=== PATIENT | female | born 1965 | race Caucasian/White ===

== ENCOUNTER 2016-12-26 17:12 | Emergency (ER) | payer MEDICARE, OTHER ==
[~2016-12-26] VITALS: Ht 154.9 cm; Wt 42.6 kg
[~2016-12-26 17:12] MED LIST: ACET-704 PO; CLIN300C8 PO
[2016-12-26 17:25] VITALS: BP 136/85
[2016-12-26] MEDS ORDERED: CLINDAMYCIN HCL 150 MG CAPSULE PO ONE ×2 (17:30→17:45)
--- NOTE | 2016-12-26 17:42 | ED.ADGEN ---
Past History Past Medical History: Anxiety, Depression, Other Past Surgical History: Alcohol Use: None Drug Use: None Adult General Chief Complaint Chief Complaint rash, swelling ? insect bite under L arm/armpit HPI HPI Patient is a 51 year old F who presents with redness, swelling in L arm pit for past 4 days Pt concerned about infection and has noticed drainage from area, more 2 days ago after pt states she "poked it with a needle" now pain that radiated from L arm pit to chest. Pt denies weakness numbness or tingling Pt states 2 days ago had red streak down arm but gone now after pus drained out Review of Systems Review of Systems Constitutional: fever or chills Eyes: Denies change in visual acuity, redness, or eye pain HENT: Denies nasal congestion or sore throat Respiratory: Denies shortness of breath Has had some chest pain that radiates from L arm pit Cardiovascular: No additional information not addressed in HPI GI: Denies abdominal pain, nausea, vomiting, bloody stools or diarrhea : Denies dysuria or hematuria Integument: redness swelling, drainage L armpit Neurologic: Denies headache, focal weakness or sensory changes Current Medications Current Medications Current Medications Medications (Trade) Dose Ordered Sig/Kendy Start Time Stop Time Status Last Admin Dose Admin Clindamycin HCl (Cleocin) 150 mg 1X ONCE 12/26/16 17:30 12/26/16 17:33 DC Ibuprofen (Motrin) 600 mg 1X ONCE 12/26/16 18:15 12/26/16 18:16 DC Allergies Allergies Allergies Coded Allergies Type Severity Reaction Last Updated Verified ketorolac Allergy Intermediate VOMITING 02/10/15 No tramadol Allergy Intermediate VOMITING 02/10/15 No I S O L A T I O N *CONTACT* Allergy Unknown 02/10/15 No pt states she can take Motrin in past without problems even though she can take toradol Physical Exam Physical Exam Constitutional: Well developed, well nourished, no acute distress, non-toxic appearance. HENT: Normocephalic, atraumatic,, oropharynx moist, no oral exudates, nose normal. Neck: Normal range of motion, no tenderness, supple, no stridor. Cardiovascular:Heart rate regular rhythm, no murmur Lungs & Thorax: Bilateral breath sounds clear to auscultation, some tenderness L upper chest, no crepitus Abdomen: Bowel sounds normal, soft, no tenderness, no masses, no pulsatile masses. Skin: L arm pit is a 4cm/5cm red area with 3 open draining areas, no abscess now and clear serosanginous material minimally from open areas mild surrounding cellulitis, no crepitus, no red streaking up or down L arm Back: No tenderness, no CVA tenderness. Extremities: , no cyanosis, no clubbing, ROM intact, no edema. Neurologic: Alert and oriented X 3, normal motor function, normal sensory function, no focal deficits noted. Psychologic: Affect normal, judgement normal, mood normal. Current Patient Data Vital Signs Vital Signs Date Time Temp Pulse Resp B/P (MAP) Pulse Ox O2 Delivery O2 Flow Rate FiO2 12/26/16 17:25 97.9 88 16 97 Room Air all vitals reviewed including nursing notes and stable EKG EKG [] Radiology/Procedures Radiology/Procedures [address] [address] IMAGING REPORT Signed PATIENT: YOUSUF PIZANO ACCOUNT: [id number] : 1965 LOCATION: ER AGE: 51 SEX: F EXAM STATUS: DEP ER ORD. PHYSICIAN: DORINA CHAPARRO MD REASON: chest pain, cough PROCEDURE: CHEST PA & LATERAL Indication: Cough and spider bite in the left axilla. Time of exam 1739 hours. Correlation is made with prior chest from 09/30/2016. FINDINGS: The heart size is normal. The lungs are clear. No pleural effusion or pneumothorax is identified. The pulmonary vascularity is normal. IMPRESSION: No acute abnormality detected. DICTATED AND SIGNED BY: CITLALLI GARRIDO MD DATE: 12/27/16 0720 CC: DORINA CHAPARRO MD; EMMANUEL SEPULVEDA ~ [] Course & Med Decision Making Course & Med Decision Making Pertinent Labs and Imaging studies reviewed. (See chart for details) pt hx of MRSA approx 8 months ago not toxic pt worried about pain from arm pit going into chest and cough so obtained CXR that was unremarkable, no gas or significant soft tissue swelling Likely abscess that is already open and draining no need to I and D in ER but will put on Clindamycin and advised close follow up with PCP Final Impression Final Impression CELLULITIS L ARM PIT WITH DRAINAGE[] Problems: Dragon Disclaimer Dragon Disclaimer This electronic medical record was generated, in whole or in part, using a voice recognition dictation system. DORINA CHAPARRO MD December 26, 2016 17:42
[2016-12-26] MEDS ORDERED: IBUPROFEN 600 MG TABLET. PO ONE (18:15)
--- NOTE | 2016-12-27 07:23 | RAD ---
Indication: Cough and spider bite in the left axilla. Time of exam 1739 hours. Correlation is made with prior chest from 09/30/2016. FINDINGS: The heart size is normal. The lungs are clear. No pleural effusion or pneumothorax is identified. The pulmonary vascularity is normal. IMPRESSION: No acute abnormality detected.
== END 2016-12-26 18:17 | disposition home or self-care (01) ==
LOC: ER 17:12
DX: L03.114 Cellulitis of left upper limb (principal); Z86.14 Personal history of Methicillin resistant Staphylococcus aureus infection; Z88.8 Allergy status to other drugs, medicaments and biological substances; Z88.6 Allergy status to analgesic agent; Z91.041 Radiographic dye allergy status
CPT/HCPCS: 71020; 99284

== ENCOUNTER 2017-01-30 15:12 | Emergency (ER) | payer MEDICARE, OTHER ==
[~2017-01-30] VITALS: Ht 154.9 cm; Wt 42.6 kg
[2017-01-30 16:10] VITALS: BP 136/66
[2017-01-30] MEDS ORDERED: HYDROcodone/APAP 5/325MG 1 TAB TABLET PO ONE (16:15)
--- NOTE | 2017-01-30 16:18 | ED.ADGEN ---
Past History Past Medical History: Anxiety, Depression, Liver Disease Past Surgical History: Alcohol Use: None Drug Use: None Adult General Chief Complaint Chief Complaint Back pain HPI HPI Patient is a 51 year-old female with history of chronic back pain and sciatica of left leg. Patient reports increased pain to left low back radiating below left knee posteriorly. Patient denies specific injury or complaint, but noted pain this morning while cooking breakfast. Patient denies motor weakness or loss of sensation. No urinary incontinence or saddle anesthesia. No other acute symptoms or complaints. Patient PCP is Tarun Pang. Also concerned about bump of small bump over Right buttocks. Review of Systems Review of Systems ROS as per HPI. Current Medications Current Medications Current Medications Medications (Trade) Dose Ordered Sig/Kendy Start Time Stop Time Status Last Admin Dose Admin Acetaminophen/ Hydrocodone Bitart (Lortab 5/325) 1 tab 1X ONCE 01/30/17 16:15 01/30/17 16:16 Allergies Allergies Allergies Coded Allergies Type Severity Reaction Last Updated Verified ketorolac Allergy Intermediate VOMITING 02/10/15 No tramadol Allergy Intermediate VOMITING 02/10/15 No I S O L A T I O N *CONTACT* Allergy Unknown 02/10/15 No Physical Exam Physical Exam Constitutional: Anxious, tearful. HENT: Normocephalic, atraumatic, bilateral external ears normal, oropharynx moist. Eyes: PERRL, EOMI. Neck: Normal range of motion, no tenderness. Cardiovascular:Heart rate regular rhythm, no murmur. Lungs & Thorax: Bilateral breath sounds clear to auscultation. Abdomen: Bowel sounds normal, soft, no tenderness. Skin: Nodule right buttock. Back: Lower lumbar paravertebral pain, no midline tenderness swelling or bruising. SLR are positive in left. Neurologic: Alert and oriented X 3, normal motor function, normal sensory function, no focal deficits noted. Current Patient Data Vital Signs Vital Signs Date Time Temp Pulse Resp B/P (MAP) Pulse Ox O2 Delivery O2 Flow Rate FiO2 01/30/17 15:20 97.3 78 18 98 Room Air EKG EKG [] Radiology/Procedures Radiology/Procedures [] Course & Med Decision Making Course & Med Decision Making Pertinent Labs and Imaging studies reviewed. (See chart for details) Left sided sciatica, no motor weakness or loss of sensation. Patient address. Instructed to follow-up with PCP for further management. Final Impression Final Impression [] Problems: Dragjerry Disclaimer Dragon Disclaimer This electronic medical record was generated, in whole or in part, using a voice recognition dictation system. GEORGE CHAPARRO DO Jan 30, 2017 16:18
== END 2017-01-30 16:15 | disposition home or self-care (01) ==
LOC: ER 15:12
DX: G89.29 Other chronic pain (principal); M54.5 Low back pain; M54.32 Sciatica, left side; Z88.8 Allergy status to other drugs, medicaments and biological substances; Z88.6 Allergy status to analgesic agent; Z91.041 Radiographic dye allergy status
CPT/HCPCS: 99283